=== PATIENT | female | born 1960 | race Caucasian/White ===

== ENCOUNTER 2016-11-22 07:02 | Day surgery (SDC) | payer BC ==
[2016-11-20 11:26] VITALS: BMI 25.2
[~2016-11-22 07:02] MED LIST: LACTATED RINGERS 1,000 ML IV SCH; LIDOCAINE 1% 20 ML VIAL (10MG/ML) FOR IV START INTRADERMA PRN
[2016-11-22] MEDS ORDERED: LACTATED RINGERS 1,000 ML IV ONE (07:09)
[2016-11-22 07:16] VITALS: TEMP 98.7
[2016-11-22] MEDS ORDERED: LIDOCAINE 1% INJ 10MG/ML (20 ML MDV) ONE (07:40)
[2016-11-22] MEDS ORDERED: PROPOFOL 10 MG/ML 20 ML VIAL IV ONE (07:40)
--- NOTE | 2016-11-22 07:48 | P.GSHP ---
History of Present Illness H&P Date: 11/22/16 Chief Complaint: Screening colonoscopy This is a 56-year-old female referred from Dr. Anastasia Doss. Patient presents today for screening colonoscopy. Her last colonoscopy approximately 8 years ago. She denies any significant GI bleed. Past Medical History Past Medical History: No Reported History, Cancer Additional Past Medical History / Comment(s): seasonal allergies. LYMPHOMA History of Any Multi-Drug Resistant Organisms: None Reported Additional Past Surgical History / Comment(s): COLONOSCOPY. REMOVAL OF LYMPHOMA FROM LT SIDE OF NECK Past Anesthesia/Blood Transfusion Reactions: Motion Sickness Smoking Status: Never smoker - Past Family History Mother Family Medical History: Cancer Father Family Medical History: Cancer Medications and Allergies Home Medications Medication Instructions Recorded Confirmed Type Acetaminophen [Tylenol Arthritis] 1,300 mg PO DAILY PRN 11/20/16 11/22/16 History Ascorbic Acid [Vitamin C] 250 mg PO DAILY 11/20/16 11/22/16 History Cholecalciferol [Vitamin D3] 1,000 unit PO DAILY 11/20/16 11/22/16 History Fexofenadine HCl [Andreina Allergy] 180 mg PO DAILY PRN 11/20/16 11/22/16 History Loratadine [Claritin] 10 mg PO DAILY PRN 11/20/16 11/22/16 History Multivit-Min/Iron/Folic/Lutein 1 each PO DAILY 11/20/16 11/20/16 History [Centrum Silver Women Tablet] diphenhydrAMINE [Benadryl] 25 mg PO HS PRN 11/20/16 11/22/16 History Allergies Allergy/AdvReac Type Severity Reaction Status Date / Time No Known Allergies Allergy Verified 11/22/16 07:10 Surgical - Exam Vital Signs Temp Pulse Resp BP Pulse Ox 98.7 F 71 18 124/64 97 11/22/16 07:15 11/22/16 07:15 11/22/16 07:15 11/22/16 07:15 11/22/16 07:15 - General well developed, no distress - Eyes PERRL - ENT normal pinna - Neck no masses - Respiratory normal expansion - Cardiovascular Rhythm: regular - Abdomen Abdomen: soft, non tender Assessment and Plan Plan: We'll perform screening colonoscopy.
--- NOTE | 2016-11-22 08:00 | P.OP ---
Date of Procedure: 11/22/16 Preoperative Diagnosis: Screening colonoscopy Postoperative Diagnosis: Cecal polyp Procedure(s) Performed: Colonoscopy Implants: Anesthesia: MAC Surgeon: Cesar Anne Pathology: other (Cecal polyp) Condition: stable Disposition: PACU Indications for Procedure: Operative Findings: Description of Procedure: The patient was placed on the endoscopy table in the lateral position. He received IV sedation. Digital rectal exam was performed which revealed no abnormality. The flexible colonoscope was then placed the patient's anus and passed throughout the entire colon. The ileocecal valve was visualized. The cecum was examined and there was a small polyp in the cecum was removed the forcep. The remainder the ascending colon, transverse colon descending colon and sigmoid colon appeared normal. Scope was then brought back the rectum and this appeared normal. Scope was withdrawn from patient.
[2016-11-22 08:43] VITALS: BP 118/64; PULSE 81; RESP 16
== END 2016-11-22 09:19 | disposition home or self-care (01) ==
LOC: ORWHC2ENDO 07:02
PROVIDERS: ATTEND Surgery
DX: Z12.11 Encounter for screening for malignant neoplasm of colon (principal); K63.5 Polyp of colon
CPT/HCPCS: 88305; 45380; J2001; J2704

== ENCOUNTER → 2017-12-25 | Outpatient (CLI) | payer BC ==
--- NOTE | 2017-12-30 11:30 | MM ---
Reason for exam: screening (asymptomatic). Last mammogram was performed 8 years and 5 months ago. History: Patient is postmenopausal and has history of other cancer at age 49. Family history of breast cancer in paternal aunt. Physical Findings: A clinical breast exam by your physician is recommended on an annual basis and results should be correlated with mammographic findings. MG Screening Mammo w CAD Bilateral CC and MLO view(s) were taken. Prior study comparison: July 13, 2009, right breast mammogram dig work up. July 01, 2009, bilateral digital screening mammogram. The breast tissue is heterogeneously dense. This may lower the sensitivity of mammography. No suspicious abnormality. No significant changes when compared with prior studies. ASSESSMENT: Negative, BI-RAD 1 RECOMMENDATION: Routine screening mammogram of both breasts in 1 year.
== END | disposition home or self-care (01) ==
LOC: RADMAMWWP 16:31
PROVIDERS: ATTEND Family Medicine
DX: Z12.31 Encounter for screening mammogram for malignant neoplasm of breast (principal)
CPT/HCPCS: 77067

== ENCOUNTER → 2018-08-23 | Outpatient (CLI) | payer BC ==
--- NOTE | 2018-08-25 07:19 | PE ---
EXAMINATION TYPE: PET CT fusion skull to thigh DATE OF EXAM: 08/23/2018 COMPARISON: Prior PET/CT March 25, 2010. Most recent whole body CT September 06, 2011 and older CTs. HISTORY: Lymphoma of the neck progress study completed chemotherapy July 2009 TECHNIQUE: Following the intravenous administration of 13.145 mCi of F-18 FDG, whole body images are performed from the skull base to the midthigh. Images are reviewed on the computer in the coronal, axial, and sagittal planes. Reconstructed rotating images are created on independent workstation and reviewed on the computer. A noncontrast CT is performed in conjunction with the PET scan. SCAN: Subsequent Scan FINDINGS: Mediastinum mean SUV: 0.93 Liver mean SUV: 2.37 SKULL BASE AND NECK: There are multiple enlarged hypermetabolic right sided lymph nodes for example right submandibular lymph node laterally measures 2.2 x 2.2 cm axial image 37, max SUV is 18.2. Media l to this in the parapharyngeal space there is 2.0 x 1.6 cm hypermetabolic lymph node, max SUV is 15. 88 on axial image 36. There are additional smaller but hypermetabolic anterior triangle lymph nodes, max SUV is 6.92 on axial image 42 and lymph node measuring 1.1 x 0.9 cm. Anterior to this at level of hyoid bone there is 1.7 x 1.4 cm hypermetabolic lymph node, max SUV is 15.24. No suspicious enlarged or hypermetabolic left-sided lymph nodes are seen. CHEST, MEDIASTINUM, AND HILAR REGION: No suspicious hypermetabolic masses or adenopathy. ABDOMEN AND PELVIS: No suspicious hypermetabolic uptake. Mild marla mesentery remains present unchang ed from 2012 CT. Spleen is suspected stable in size mildly enlarged on coronal images. Liver is upper limits of normal in size and stable. OSSEOUS STRUCTURES: No suspicious hypermetabolic uptake. OTHER CT: Incidental normal-appearing appendix. Redemonstration of thin-walled bilateral ovarian cysts, left ovary larger at 3.7 x 3.7 cm on axial im age 89 not significantly changed from 2012 CT suggesting benign neoplasms as are abnormal finding in postmenopausal female. There is some facet arthropathy in the lower lumbar spine. IMPRESSION: Recurrent neoplasm or lymphoma in the right neck as detailed above. No involvement in the thorax abdomen or pelvis identified.
== END | disposition home or self-care (01) ==
LOC: RADPETMAIN 11:25
PROVIDERS: ATTEND Internal Medicine Hematology & Oncology
DX: C85.91 Non-Hodgkin lymphoma, unspecified, lymph nodes of head, face, and neck (principal)
CPT/HCPCS: 78815; A9552

== ENCOUNTER → 2019-01-03 | Outpatient (CLI) | payer BC ==
--- NOTE | 2019-01-05 09:32 | PE ---
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 Images are reviewed on the computer in the coronal, axial, and sagittal planes. Reconstructed rotating images are created on independent workstation and reviewed on the computer. A localization and attenuation correction CT is performed in conjunction with the PET scan. DLP: 289.34 mGycm SCAN: Subsequent Blood glucose: 107 mg/dL Average Mediastinum SUV: 1.51 Average Liver SUV: 2.38 FINDINGS: NECK: No abnormal uptake. The intense uptake previously identified is no longer evident on the curre nt exam. THORAX: No abnormal uptake ABDOMEN: No abnormal uptake PELVIS: No abnormal uptake OSSEOUS STRUCTURES: No abnormal uptake LOCALIZATION CT: Previous enlarged lymphadenopathy within the right parotid region and submandibular region is no longer evident. Ascending thoracic aorta at the level the main pulmonary artery is 3.0 c m. The main pulmonary artery the bifurcation is 2.3 cm. Left ovarian cyst measuring 3.8 cm is present . Right ovarian cyst is present measuring 2.4 cm transverse. COMPARISON: There is resolution of the previous marked uptake in lymphadenopathy within the right nec k. IMPRESSION: 1. No suspicious uptake to suggest residual or recurrent normal.
== END | disposition home or self-care (01) ==
LOC: RADPETMAIN 09:36
PROVIDERS: ATTEND Internal Medicine Hematology & Oncology
DX: C82.88 Other types of follicular lymphoma, lymph nodes of multiple sites (principal); Z92.21 Personal history of antineoplastic chemotherapy
CPT/HCPCS: 78815; A9552

== ENCOUNTER → 2019-04-08 | Outpatient (CLI) | payer BC ==
--- NOTE | 2019-04-08 15:49 | CT ---
EXAMINATION TYPE: CT ChestAbdPelvis w con DATE OF EXAM: 04/08/2019 INDICATION: Follow up for follicular lymphoma. COMPARISON: 01/03/2019 PET/CT, 09/06/2011 CT DLP: 628.2 mGycm CONTRAST: Performed with Oral Contrast and with IV Contrast, patient injected with 100ml mL of Isovue 300. TECHNIQUE: Axial images at 5 mm thick sections. Reconstructed images in the coronal plane. Delayed images through the kidneys. FINDINGS: CT CHEST: Portion of the thyroid visualized appears unremarkable. No discrete mass is identified. Subglottic airway is unremarkable. No suspicious lung nodules or focal infiltrates are present. There is a 0.4 cm nodule within the posterior lateral right lung base. Series 5 image 47. This was pr esent previously. Lungs are otherwise clear. The ascending aorta diameter at the level of the main pulmonary artery is 2.6 cm. The main pulmonary artery diameter at the bifurcation is 2.[address] ABDOMEN: Liver: Normal Spleen: Normal Pancreas: Normal Adrenal glands: The adrenal glands are normal. Gallbladder: Normal Kidneys: No masses are evident. No hydronephrosis is present. No cysts are present. Delayed images were obtained through the kidneys, which remain unremarkable. Aorta: Normal Inferior vena cava: Normal. CT PELVIS: Loops of bowel within the abdomen and pelvis are normal. There are loops of bowel which are incom pletely distended or lack oral contrast limiting their evaluation. Appendix: Normal as visualized. Urinary bladder: Decompressed with limited evaluation. Genitourinary structures: Uterus appears normal. There is a 4.4 cm left ovarian cyst measuring 9 Houn sfield units. There is a 2.4 cm right ovarian cyst measuring 9 Hounsfield units. These can be further evaluated with ultrasound. Neoplasm is not excluded on the basis of this examination. These appear t o been present in 2012 and appear more prominent. Osseous structures: No suspicious lytic or sclerotic lesions. IMPRESSIONS: 1. Bilateral low density cysts on the ovaries. These appear to be present in 2012 there is slightly l arger over the interval. Neoplasm is not excluded. 2. No suspicious changes to suggest metastatic disease. Additional workup is recommended.
== END | disposition home or self-care (01) ==
LOC: RADCTMAIN 12:30
PROVIDERS: ATTEND Internal Medicine Hematology & Oncology
DX: N83.202 Unspecified ovarian cyst, left side (principal); N83.201 Unspecified ovarian cyst, right side; C82.98 Follicular lymphoma, unspecified, lymph nodes of multiple sites
CPT/HCPCS: 71260; 74177; Q9967

== ENCOUNTER → 2020-11-04 | Outpatient (CLI) | payer BC ==
--- NOTE | 2020-11-08 10:29 | MM ---
Reason for exam: screening (asymptomatic). Last mammogram was performed 2 years and 10 months ago. History: Patient is postmenopausal and has history of other cancer at age 49. Family history of breast cancer in paternal aunt. Physical Findings: A clinical breast exam by your physician is recommended on an annual basis and results should be correlated with mammographic findings. MG 3D Screening Mammo W/Cad Bilateral CC and MLO view(s) were taken. Prior study comparison: December 25, 2017, bilateral MG screening mammo w CAD. The breast tissue is heterogeneously dense. This may lower the sensitivity of mammography. No significant changes when compared with prior studies. ASSESSMENT: Negative, BI-RAD 1 RECOMMENDATION: Routine screening mammogram of both breasts in 1 year.
== END | disposition home or self-care (01) ==
LOC: RADMAMWWP 08:32
PROVIDERS: ATTEND Family Medicine
DX: Z12.31 Encounter for screening mammogram for malignant neoplasm of breast (principal); Z78.0 Asymptomatic menopausal state; Z80.3 Family history of malignant neoplasm of breast
CPT/HCPCS: 77063; 77067

== ENCOUNTER → 2021-07-25 | Outpatient (CLI) | payer BC ==
--- NOTE | 2021-07-25 12:50 | US ---
EXAMINATION TYPE: US transvaginal DATE OF EXAM: 07/25/2021 COMPARISON: CT 04/08/2019 CLINICAL HISTORY: 60-year-old female C82.98 Follicular lymphoma. History of ovarian cysts, 2, para 2 TECHNIQUE: Transvaginal exam only per ordering physician Date of LMP: 10+ years ago FINDINGS: EXAM MEASUREMENTS: Uterus: 10.0 x 2.4 x 3.1 cm Endometrial Stripe: 0.3 cm Right Ovary: 3.3 x 2.4 x 3.0 cm Left Ovary: 4.9 x 4.6 x 4.9 cm 1. Uterus: anteverted 2. Endometrium: appears wnl 3. Right Ovary: 2.9 x 1.9 x 2.5cm cyst 4. Left Ovary: 4.5 x 3.8 x 4.4cm cyst 5. Bilateral Adnexa: wnl 6. Posterior cul-de-sac: wnl IMPRESSION: 1. Thin endometrial stripe at 3 mm. 2. A 4.5 cm cyst of the left ovary and 2.9 cm cyst of the right ovary. These are relatively unchanged compared to the 04/08/2019 CT. Ongoing ultrasound surveillance is recommended.
== END | disposition home or self-care (01) ==
LOC: RADUSWWP 09:37
PROVIDERS: ATTEND Internal Medicine Hematology & Oncology
DX: N83.201 Unspecified ovarian cyst, right side (principal); N83.202 Unspecified ovarian cyst, left side; C82.98 Follicular lymphoma, unspecified, lymph nodes of multiple sites
CPT/HCPCS: 76830

== ENCOUNTER 2021-11-29 10:05 | Day surgery (SDC) | payer BC ==
[2021-11-27 16:27] VITALS: BMI 23.6
--- NOTE | 2021-11-29 08:53 | P.GSHP ---
History of Present Illness H&P Date: 11/29/21 CHIEF COMPLAINT: Colon screen HISTORY OF PRESENT ILLNESS: The patient is a 61-year-old female who presents for colon screen. Lower endoscopy was offered for further evaluation and management. PAST MEDICAL HISTORY: Please see list. PAST SURGICAL HISTORY: Please see list. MEDICATIONS: Please see list. ALLERGIES: Please see list. SOCIAL HISTORY: No illicit drug use FAMILY HISTORY: No reports of Crohn disease or ulcerative colitis. REVIEW OF ORGAN SYSTEMS: CONSTITUTIONAL: No reports of fevers or chills. PHYSICAL EXAM: VITAL SIGNS: Stable GENERAL: Well-developed pleasant in no acute distress. HEENT: No scleral icterus. Extraocular movements grossly intact. Moist buccal mucosa. NECK: Supple without lymphadenopathy. CHEST: Unlabored respirations. Equal bilateral excursions. CARDIOVASCULAR: Regular rate and rhythm. Distal 2+ pulses. ABDOMEN: Soft, nontender, nondistended. MUSCULOSKELETAL: No clubbing, cyanosis, or edema. ASSESSMENT: 1. Colon screen. PLAN: 1. Recommend proceeding with a lower endoscopy Past Medical History Past Medical History: Cancer Additional Past Medical History / Comment(s): seasonal allergies. LYMPHOMA History of Any Multi-Drug Resistant Organisms: None Reported Past Surgical History: Tonsillectomy Additional Past Surgical History / Comment(s): COLONOSCOPY. REMOVAL OF LYMPHOMA FROM LT SIDE OF NECK, REMOVAL OF LYMPH NODE FROM RIGHT SIDE OF NECK Past Anesthesia/Blood Transfusion Reactions: Motion Sickness Smoking Status: Never smoker - Past Family History Mother Family Medical History: Cancer Father Family Medical History: Cancer Medications and Allergies Home Medications Medication Instructions Recorded Confirmed Type Acetaminophen [Tylenol Arthritis] 1,300 mg PO DAILY PRN 11/20/16 11/27/21 History Cholecalciferol [Vitamin D3] 1,000 unit PO DAILY 11/20/16 11/27/21 History Loratadine [Claritin] 10 mg PO DAILY PRN 11/20/16 11/27/21 History Multivit-Min/Iron/Folic/Lutein 1 each PO DAILY 11/20/16 11/27/21 History [Centrum Silver Women Tablet] diphenhydrAMINE [Benadryl] 25 mg PO HS PRN 11/20/16 11/27/21 History Ibuprofen [Motrin] 400 mg PO Q6HR PRN 11/27/21 11/27/21 History Allergies Allergy/AdvReac Type Severity Reaction Status Date / Time No Known Allergies Allergy Verified 11/22/16 07:10
[~2021-11-29 10:05] MED LIST changes: -LIDOCAINE 1% 20 ML VIAL (10MG/ML) FOR IV START INTRADERMA PRN
[2021-11-29 11:36] VITALS: RESP 16; TEMP 97.7
[2021-11-29] MEDS ORDERED: LIDOCAINE 1% (10MG/ML) FOR IV START INTRADERMA ONE (11:38)
[2021-11-29] MEDS ORDERED: PROPOFOL 10 MG/ML 20 ML VIAL IV ONE (12:10)
--- NOTE | 2021-11-29 12:37 | P.PCN ---
Date of Procedure: 11/29/21 Description of Procedure: PREOPERATIVE DIAGNOSIS: Personal history colon polyps Colonoscopy screening. POSTOPERATIVE DIAGNOSIS: Colonoscopy screening. Diverticulosis, scattered. OPERATION: Colonoscopy to the cecum, ileocecal valve and appendiceal orifice. SURGEON: Toyin Nelson MD. ANESTHESIA: MAC. INDICATIONS: The patient is a 61-year-old female who presents for colonoscopy screening. Last colonoscopy 5 years ago. Benefits and risks were described and informed consent was obtained. DESCRIPTION OF PROCEDURE: The patient had undergone Sutab prep. The patient had been brought into the operating room and laid in the left lateral decubitus position. After adequate intravenous sedation, the rectum was examined with 2% lidocaine jelly. External hemorrhoids were encountered. The rectal tone was within normal limits. No lesions were palpated in the rectal vault. An Olympus colonoscope was advanced until the cecum, ileocecal valve and appendiceal orifice were clearly viewed. The prep was excellent. Scattered diverticulosis was encountered. No colonic polyps were found. No evidence of focal colitis was found. Retroflexion of the scope demonstrated grade 2 internal hemorrhoids without active bleeding or inflammation. The colon was desufflated. The patient had tolerated the procedure well. Withdrawal time was over 6 minutes. FINDINGS: Aronchick preparation quality scale 1 (1-5) Internal hemorrhoids, grade 2 External prolapsed hemorrhoids, grade 2 No arteriovenous malformations. No adenomatous polyps. No focal colitis. RECOMMENDATIONS: Lower endoscopy in 5 years, 2026 Plan - Discharge Summary Discharge Rx Participant: No New Discharge Prescriptions: No Action Cholecalciferol [Vitamin D3] 1,000 unit PO DAILY diphenhydrAMINE [Benadryl] 25 mg PO HS PRN PRN Reason: SLEEP Loratadine [Claritin] 10 mg PO DAILY PRN PRN Reason: ALLERGIES Multivit-Min/Iron/Folic/Lutein [Centrum Silver Women Tablet] 1 each PO DAILY Acetaminophen [Tylenol Arthritis] 1,300 mg PO DAILY PRN PRN Reason: Pain Ibuprofen [Motrin] 400 mg PO Q6HR PRN PRN Reason: Pain Discharge Medication List Acetaminophen [Tylenol Arthritis] 1,300 mg PO DAILY PRN 11/20/16 [History] Cholecalciferol [Vitamin D3] 1,000 unit PO DAILY 11/20/16 [History] Loratadine [Claritin] 10 mg PO DAILY PRN 11/20/16 [History] Multivit-Min/Iron/Folic/Lutein [Centrum Silver Women Tablet] 1 each PO DAILY 11/20/16 [History] diphenhydrAMINE [Benadryl] 25 mg PO HS PRN 11/20/16 [History] Ibuprofen [Motrin] 400 mg PO Q6HR PRN 11/27/21 [History]
[2021-11-29 13:01] VITALS: BP 98/53; PULSE 66
== END 2021-11-29 14:00 | disposition home or self-care (01) ==
LOC: ORWHC2ENDO 10:05
PROVIDERS: ATTEND Surgery Plastic and Reconstructive Surgery
DX: Z12.11 Encounter for screening for malignant neoplasm of colon (principal); K57.30 Diverticulosis of large intestine without perforation or abscess without bleeding; K64.4 Residual hemorrhoidal skin tags; Z86.010 Personal history of colon polyps; K64.1 Second degree hemorrhoids; Z85.79 Personal history of other malignant neoplasms of lymphoid, hematopoietic and related tissues; Z98.890 Other specified postprocedural states; Z80.9 Family history of malignant neoplasm, unspecified; Z79.899 Other long term (current) drug therapy
CPT/HCPCS: J2704; G0105; 45378

== ENCOUNTER → 2021-12-26 | Outpatient (CLI) | payer BC ==
--- NOTE | 2021-12-26 10:50 | CT ---
EXAMINATION TYPE: CT abdomen pelvis w con CT DLP: 562.2 mGycm, Automated exposure control for dose reduction was used. DATE OF EXAM: 12/26/2021 10:39 AM COMPARISON: 04/08/2019 CLINICAL INDICATION:Female, 61 years old with history of C50.911 Breast CA; Diverticulitis TECHNIQUE: Axial CT of the abdomen and pelvis. Sagittal and coronal reformats were created on a [employer] workstation. Contrast used:70 mL of Isovue 300 with IV Contrast, Oral contrast used: with Oral Contrast FINDINGS: LOWER CHEST: Unremarkable ABDOMEN LIVER: Diffusely hypoattenuating parenchyma. GALLBLADDER AND BILE DUCTS: Unremarkable. PANCREAS: Unremarkable. SPLEEN: Unremarkable. ADRENAL GLANDS: Unremarkable. KIDNEYS AND URETERS: No evidence of hydronephrosis or renal calculus. The ureters are unremarkable. PELVIS BLADDER: Unremarkable REPRODUCTIVE: Bilateral adnexal cysts measuring up to 2.9 cm in the right and 4.6 cm on the left. The se are stable from ultrasound 07/25/2021. ABDOMEN & PELVIS STOMACH AND BOWEL: Minimal diverticula are seen within the colon. No evidence of bowel obstruction. A ppendix is normal. PERITONEUM: No evidence of pneumoperitoneum or free fluid. Similar marla mesentery as seen on prior o n 04/08/2019 VASCULATURE: Mild atherosclerotic calcifications are present throughout the abdominal aorta and its b ranches. No evidence of aortic aneurysm. MUSCULOSKELETAL: No acute osseous abnormalities. Mild disc degeneration changes are present throughou t the thoracolumbar spine. Mild scoliosis changes with dextroscoliosis apex L3. LYMPH NODES: No gross evidence for lymphadenopathy. SOFT TISSUE/ABDOMINAL WALL: Unremarkable IMPRESSION: 1. No evidence for acute process in the abdomen or pelvis. 2. No evidence for lymphadenopathy in abdomen or pelvis. 3. Hepatic steatosis. 4. Stable size of bilateral ovarian cysts measuring up to 2.9 cm on the right and 4.6 cm on the left .
== END | disposition home or self-care (01) ==
LOC: RADCTMAIN 08:30
PROVIDERS: ATTEND Surgery Plastic and Reconstructive Surgery
DX: C50.911 Malignant neoplasm of unspecified site of right female breast (principal); K76.0 Fatty (change of) liver, not elsewhere classified; N83.201 Unspecified ovarian cyst, right side; N83.202 Unspecified ovarian cyst, left side; K57.32 Diverticulitis of large intestine without perforation or abscess without bleeding
CPT/HCPCS: 74177; Q9967 ×2

== ENCOUNTER → 2022-09-20 | Outpatient (CLI) | payer BC ==
--- NOTE | 2022-09-21 08:59 | MM ---
Reason for Exam: Screening (asymptomatic). Last mammogram was performed 1 year(s) and 11 month(s) ago. Patient History: Menarche at age 11. First Full-Term at age 20. Postmenopausal. Other cancer, age 49. Paternal aunt had breast cancer. Risk Values: Ayse 5 year model risk: 1.4%. NCI Lifetime model risk: 6.2%. Prior Study Comparison: 07/13/2009 Right Diagnostic Mammogram, [facility]. 12/25/2017 Bilateral Screening Mammogram, [facility]. 11/04/2020 Bilateral Screening Mammogram, [facility]. Tissue Density: The breast tissue is heterogeneously dense. This may lower the sensitivity of mammography. Findings: Analyzed By CAD. There is no suspicious group of microcalcifications or new suspicious mass in either breast. Overall Assessment: Negative, BI-RAD 1 Management: Screening Mammogram of both breasts in 1 year. A clinical breast exam by your physician is recommended on an annual basis and results should be correlated with mammographic findings. Electronically signed and approved by: Bj Zelaya D.O.
== END | disposition home or self-care (01) ==
LOC: RADMAMWWP 09:40
PROVIDERS: ATTEND Family Medicine
DX: Z12.31 Encounter for screening mammogram for malignant neoplasm of breast (principal); Z78.0 Asymptomatic menopausal state; Z80.3 Family history of malignant neoplasm of breast
CPT/HCPCS: 77063; 77067